=== PATIENT | female | born 1950 | race Caucasian/White ===

== ENCOUNTER 2017-03-26 13:12 | Inpatient (IN) | payer MEDICARE ==
[2017-03-26] MEDS ORDERED: SODIUM CHLORIDE 0.9% 1,000 ML IV STA (13:19)
--- NOTE | 2017-03-26 13:55 | ED ---
General Adult HPI - General Chief complaint: Weakness Stated complaint: weakness Time Seen by Provider: 03/26/17 13:14 Source: patient, EMS, RN notes reviewed Mode of arrival: EMS Limitations: no limitations - History of Present Illness Initial comments: Patient is a pleasant 66-year-old female presenting to the emergency department for generalized weakness. Patient took a bath last night but was too weak to get out of the bathtub. No isolated area of weakness. Patient tried to get out with assistance today however fell again. Patient denies any serious injury. No confusion. No neck or back pain. No chest pain. No abdominal pain. - Related Data Home Medications Medication Instructions Recorded Confirmed Benztropine Mesylate [Cogentin] 0.5 mg PO DAILY 03/26/17 03/26/17 Haloperidol [Haldol] 10 mg PO TID 03/26/17 03/26/17 Allergies Allergy/AdvReac Type Severity Reaction Status Date / Time No Known Allergies Allergy Verified 03/26/17 13:51 Review of Systems ROS Statement: Those systems with pertinent positive or pertinent negative responses have been documented in the HPI. ROS Other: All systems not noted in ROS Statement are negative. Constitutional: Denies: fever Eyes: Denies: eye pain ENT: Denies: ear pain Respiratory: Denies: dyspnea Cardiovascular: Denies: chest pain Endocrine: Denies: polydipsia Gastrointestinal: Denies: abdominal pain Genitourinary: Denies: dysuria Musculoskeletal: Denies: back pain Skin: Denies: rash Neurological: Reports: weakness Past Medical History History of Any Multi-Drug Resistant Organisms: None Reported Past Surgical History: No Surgical Hx Reported Additional Past Surgical History / Comment(s): as a child, D&C. Past Psychological History: Schizophrenia Smoking Status: Current every day smoker Past Alcohol Use History: None Reported Past Drug Use History: None Reported General Exam Limitations: no limitations General appearance: alert, in no apparent distress Head exam: Present: atraumatic Eye exam: Present: normal appearance, PERRL, EOMI ENT exam: Present: normal oropharynx Neck exam: Present: normal inspection Respiratory exam: Present: normal lung sounds bilaterally Cardiovascular Exam: Present: regular rate, normal rhythm Expanded Peripheral pulses: 2+: Radial (R), Radial (L), Dorsalis Pedis (R), Dorsalis Pedis (L) GI/Abdominal exam: Present: soft. Absent: tenderness Extremities exam: Present: normal inspection, full ROM. Absent: tenderness Neurological exam: Present: alert, oriented X3, CN II-XII intact. Absent: motor sensory deficit Expanded Patient oriented to: Present: person, place, time Speech: Present: fluid speech Sensory exam: Upper Extremity Light Touch: Normal, Lower Extremity Light Touch: Normal Motor strength exam: RUE: 5, LUE: 5, RLE: 5, LLE: 5 Eye Response: (4) open spontaneously Motor Response: (6) obeys commands Verbal Response: (5) oriented Psychiatric exam: Present: normal affect, normal mood Skin exam: Present: other (Ecchymosis left shoulder) Course Vital Signs 03/26/17 03/26/17 13:28 15:01 Temperature 97.9 F Pulse Rate 98 92 Respiratory 18 18 Rate Blood Pressure 117/72 125/87 O2 Sat by Pulse 94 L 97 Oximetry - Reevaluation(s) Reevaluation #1: 03/26/17 15:47 Patient reevaluated and updated. Patient case discussed in detail with Dr. Joseph, Who would like IV fluids provided. He agrees with heparin. Dr. Stuart has been paged for hospital admission. EKG Findings - EKG Comments: EKG Findings:: Normal sinus rhythm 94. TX 122. QRS 84. QT 402. QTC 502. Normal axis. Normal QRS. Lateral ST depression. Medical Decision Making - Lab Data Result diagrams: 03/26/17 13:32 03/26/17 13:32 Lab Results 03/26/17 03/26/17 03/26/17 Range/Units 13:32 13:32 13:32 WBC 20.2 H (3.8-10.6) k/uL RBC 4.78 (3.80-5.40) m/uL Hgb 15.9 (11.4-16.0) gm/dL Hct 45.4 (34.0-46.0) % MCV 94.9 (80.0-100.0) fL MCH 33.1 (25.0-35.0) pg MCHC 34.9 (31.0-37.0) g/dL RDW 13.0 (11.5-15.5) % Plt Count 296 (150-450) k/uL Neutrophils % 86 % Lymphocytes % 7 % Monocytes % 6 % Eosinophils % 0 % Basophils % 0 % Neutrophils # 17.4 H (1.3-7.7) k/uL Lymphocytes # 1.4 (1.0-4.8) k/uL Monocytes # 1.2 H (0-1.0) k/uL Eosinophils # 0.1 (0-0.7) k/uL Basophils # 0.0 (0-0.2) k/uL PT (9.0-12.0) sec INR (<1.1) APTT (22.0-30.0) sec Sodium 142 (137-145) mmol/L Potassium 3.8 (3.5-5.1) mmol/L Chloride 110 H (98-107) mmol/L Carbon Dioxide 19 L (22-30) mmol/L Anion Gap 13 mmol/L BUN 34 H (7-17) mg/dL Creatinine 1.00 (0.52-1.04) mg/dL Est GFR (MDRD) Af Amer >60 (>60 ml/min/1.73 sqM) Est GFR (MDRD) Non-Af 55 (>60 ml/min/1.73 sqM) Glucose 138 H (74-99) mg/dL Calcium 9.1 (8.4-10.2) mg/dL Magnesium 2.2 (1.6-2.3) mg/dL Total Bilirubin 0.7 (0.2-1.3) mg/dL AST 593 H (14-36) U/L ALT 120 H (9-52) U/L Alkaline Phosphatase 89 (38-126) U/L Total Creatine Kinase >71470 H (30-135) U/L CK-MB (CK-2) 180.0 H* (0.0-2.4) ng/mL CK-MB (CK-2) Rel Index Troponin I 8.280 H* (0.000-0.034) ng/mL Total Protein 7.0 (6.3-8.2) g/dL Albumin 3.8 (3.5-5.0) g/dL TSH 4.370 (0.465-4.680) mIU/L Free T4 0.87 (0.78-2.19) ng/dL Free T3 pg/mL 3.2 (2.8-5.3) pg/ml 03/26/17 Range/Units 13:32 WBC (3.8-10.6) k/uL RBC (3.80-5.40) m/uL Hgb (11.4-16.0) gm/dL Hct (34.0-46.0) % MCV (80.0-100.0) fL MCH (25.0-35.0) pg MCHC (31.0-37.0) g/dL RDW (11.5-15.5) % Plt Count (150-450) k/uL Neutrophils % % Lymphocytes % % Monocytes % % Eosinophils % % Basophils % % Neutrophils # (1.3-7.7) k/uL Lymphocytes # (1.0-4.8) k/uL Monocytes # (0-1.0) k/uL Eosinophils # (0-0.7) k/uL Basophils # (0-0.2) k/uL PT 11.2 (9.0-12.0) sec INR 1.1 (<1.1) APTT 21.0 L (22.0-30.0) sec Sodium (137-145) mmol/L Potassium (3.5-5.1) mmol/L Chloride (98-107) mmol/L Carbon Dioxide (22-30) mmol/L Anion Gap mmol/L BUN (7-17) mg/dL Creatinine (0.52-1.04) mg/dL Est GFR (MDRD) Af Amer (>60 ml/min/1.73 sqM) Est GFR (MDRD) Non-Af (>60 ml/min/1.73 sqM) Glucose (74-99) mg/dL Calcium (8.4-10.2) mg/dL Magnesium (1.6-2.3) mg/dL Total Bilirubin (0.2-1.3) mg/dL AST (14-36) U/L ALT (9-52) U/L Alkaline Phosphatase (38-126) U/L Total Creatine Kinase (30-135) U/L CK-MB (CK-2) (0.0-2.4) ng/mL CK-MB (CK-2) Rel Index Troponin I (0.000-0.034) ng/mL Total Protein (6.3-8.2) g/dL Albumin (3.5-5.0) g/dL TSH (0.465-4.680) mIU/L Free T4 (0.78-2.19) ng/dL Free T3 pg/mL (2.8-5.3) pg/ml Critical Care Time Critical Care Time: Yes Total Critical Care Time: 35 Disposition Clinical Impression: Weakness, NSTEMI (non-ST elevated myocardial infarction), Rhabdomyolysis Disposition: ADMITTED IP TO THIS [facility] Condition: Serious Referrals: None,Stated [Primary Care Provider] - 1-2 days Decision Time: 15:48
[2017-03-26 13:58] LABS: Basophils % (A) 0 %; CH 32.8; CHCM 34.7; Eosinophils # (A) 0.1 k/uL (0-0.7); Eosinophils % (A) 0 %; HCT 45.4 % (34.0-46.0); HDW 2.38; HGB 15.9 gm/dL (11.4-16.0); Luc # (Auto) 0.15; Luc % (Auto) 1; Lymphocytes # (A) 1.4 k/uL (1.0-4.8); Lymphocytes % (A) 7 %; MCH 33.1 pg (25.0-35.0); MCHC 34.9 g/dL (31.0-37.0); MCV 94.9 fL (80.0-100.0); Mean Platelet Volume 7.2; Monocytes # (A) 1.2 k/uL (0-1.0); Monocytes % (A) 6 %; Neutrophils # (A) 17.4 k/uL (1.3-7.7); Neutrophils % (A) 86 %; RBC 4.78 m/uL (3.80-5.40); WBC 20.2 k/uL (3.8-10.6); WBC (Perox) 20.15
[2017-03-26 14:09] LABS: INR 1.1 (<1.1); Prothrombin Time 11.2 sec (9.0-12.0)
[2017-03-26 14:10] LABS: ALT 120 U/L (9-52); AST 593 U/L (14-36); Alkaline Phosphatase 89 U/L (38-126); Anion Gap 13 mmol/L; Blood Urea Nitrogen 34 mg/dL (7-17); Calcium 9.1 mg/dL (8.4-10.2); Carbon Dioxide 19 mmol/L (22-30); Chloride 110 mmol/L (98-107); Glucose 138 mg/dL (74-99); Magnesium 2.2 mg/dL (1.6-2.3); Non-African American GFR(MDRD) 55 (>60 ml/min/1.73 sqM); Sodium 142 mmol/L (137-145); Total Bilirubin 0.7 mg/dL (0.2-1.3)
[2017-03-26 14:11] LABS: Potassium 3.8 mmol/L (3.5-5.1)
--- NOTE | 2017-03-26 14:32 | CT ---
EXAMINATION TYPE: CT brain wo con DATE OF EXAM: 03/26/2017 COMPARISON: NONE HISTORY: Pain and weakness CT DLP: [address] of the brain was performed. The ventricles, basal cisterns and sulci overlying the cerebral convexities demonstrate moderate enla rgement. There is no evidence for intracranial hemorrhage or sulcal effacement. There is decreased attenuation about the periventricular white matter and deep white matter of both c erebral hemispheres, compatible with chronic small vessel ischemia. Differential diagnosis does inclu de demyelination. No mass effects are seen.No midline shift. Osseous calvarium is intact. Mucosal thickening left maxillary sinus. If symptoms persist consider MRI. IMPRESSION: 1. Age related atrophic and chronic small vessel ischemic change without acute intracranial process s een at this time.
[2017-03-26] MEDS ORDERED: HEPARIN SODIUM,PORCINE 5,000 UNIT/ML 1 ML VIAL IV PRN (14:59)
[2017-03-26] MEDS ORDERED: HEPARIN SODIUM,PORCINE 5,000 UNIT/ML 1 ML VIAL IV ONE (14:59)
[2017-03-26 15:02] LABS: Creatine Kinase >32000 U/L (30-135)
--- NOTE | 2017-03-26 15:02 | XR ---
EXAMINATION TYPE: XR chest 2V DATE OF EXAM: 03/26/2017 COMPARISON: NONE TECHNIQUE: PA and lateral views submitted. HISTORY: Weakness FINDINGS: Diffuse osteopenia noted with arthropathy of the shoulders. There is no focal consolidation. Curvatur e the spine with degenerative changes noted. Atherosclerotic change aorta. IMPRESSION: 1. No acute process
--- NOTE | 2017-03-26 15:03 | XR ---
EXAMINATION TYPE: XR pelvis AP view DATE OF EXAM: 03/26/2017 COMPARISON: NONE HISTORY: Pain The osseous structures are intact and the joint spaces are preserved. No acute fracture is seen. Vi sualized bowel gas pattern is nonspecific. Vascular calcification seen with arthropathy of the hips. IMPRESSION: 1. No acute fracture.
--- NOTE | 2017-03-26 15:05 | XR ---
EXAMINATION TYPE: XR shoulder limited LT DATE OF EXAM: 03/26/2017 COMPARISON: NONE HISTORY: Pain TECHNIQUE: Two views are submitted. Frontal view is limited technically. FINDINGS: The osseous structures are intact. There is no acute fracture or dislocation. The AC joint is narro wed with mild hypertrophic changes. There is mild narrowing of the glenohumeral joint. Mild diffuse o steopenia. IMPRESSION: 1. No acute process.
[2017-03-26] MEDS: HEPARIN SODIUM,PORCINE/D5W PMX 25,000 UNIT in DEXTROSE/WATER 1 500ML.BAG IV SCH (15:30)
[2017-03-26] MEDS ORDERED: SODIUM CHLORIDE 0.9% 500 ML IV STA (15:48)
[2017-03-26] MEDS ORDERED: NITROGLYCERIN SL TABS 0.4 MG TAB SUBLINGUAL PRN (15:49)
[2017-03-26] MEDS ORDERED: ASPIRIN 81 MG CHEW PO STA (15:49)
[2017-03-26 15:53] LABS: Appearance,Urine Cloudy (Clear); Bilirubin,Urine Negative (Negative); Glucose,Urine (UA) Negative (Negative); Ketones,Urine Trace (Negative); Leukocyte Esterase,Urine Negative (Negative); Mucus,Urine Moderate /hpf; Nitrite,Urine Negative (Negative); PH, Urine 5.5 (5.0-8.0); Particle Count 19119; Protein,Urine 2+ (Negative); RBC,Urine 13 /hpf (0-5); Specific Gravity,Urine 1.026 (1.001-1.035); Squamous Epithelial Cell,Urine 2 /hpf (0-4); UA Billing (MACRO vs. MICRO) MICRO; Urobilinogen,Urine <2.0 mg/dL (<2.0)
[2017-03-26 20:43] LABS: Creatine Kinase >32000 U/L (30-135)
[2017-03-26] MEDS: HALOPERIDOL 5 MG TAB PO SCH (21:59)
[2017-03-26] MEDS ORDERED: LEVOFLOXACIN 500MG-D5W PMX 500 MG in DEXTROSE/WATER 1 100ML.BAG IVPB SCH (22:00)
[2017-03-27] MEDS ORDERED: LORazepam 1 MG TAB PO PRN (00:17)
[2017-03-27] MEDS: NITROGLYCERIN OINT 1 INCH/GM PACKET TOPICAL SCH ×5 (00:19→17:05)
[2017-03-27] MEDS: SODIUM CHLORIDE 0.9% 1,000 ML IV SCH ×3 (00:19→20:55)
[2017-03-27 02:49] LABS: Creatine Kinase >32000 U/L (30-135)
--- NOTE | 2017-03-27 06:07 | HP ---
CHIEF COMPLAINT: Weakness. HISTORY OF PRESENT ILLNESS: This 66-year-old woman with a past medical history of history of DJD, history of schizophrenia, history of smoking, living in [facility] apparently has been followed with Dr. Leon who is a psychiatrist. The patient apparently was complaining of weakness and patient was unable to get out of the bathtub. The patient had a fall also. The patient denied any ( ) pain, but however a friend came in and apparently took to the patient to [facility] and admitted for further evaluation and treatment. In the ER, the patient was showing evidence of rhabdomyolysis, indicating WBC 20.2 and AST, ALT were elevated and as well as creatine kinase elevated 32,000. The patient admitted for further evaluation and treatment. There is no history of fever, rigors. No history of headache, loss of consciousness or seizures. The creatinine was 1. PAST MEDICAL HISTORY: History of schizophrenia and history of DJD. History of smoking. Medications prior to admission include: 1. Haldol 10 mg p.o. t.i.d. 2. Cogentin 0.5 mg daily. Allergies are none. FAMILY HISTORY: History of CHF in the family. SOCIAL HISTORY: History of current smoking, about at least a pack of cigarettes per day. Occasional alcohol intake. REVIEW OF SYSTEM: ENT: No diminished hearing and vision. CARDIOVASCULAR: No angina or palpitations. RESPIRATORY: No cough or hemoptysis. GI: As mentioned earlier. : No dysuria NERVOUS SYSTEM: No numbness or weakness. ALLERGY/IMMUNOLOGY: No history of asthma or hayfever. MUSCULOSKELETAL: As mentioned earlier. HEMATOLOGY/ONCOLOGY: No history of anemia. ENDOCRINE: No history of diabetes or hypothyroidism. CONSTITUTIONAL: As mentioned earlier. DERMATOLOGY: Negative. RHEUMATOLOGY: Negative. PSYCHIATRY: As mentioned earlier. PHYSICAL EXAM: The patient is alert and oriented x2. Pulse is 93, blood pressure is 138/81, respirations 17, temperature 97.1, pulse ox 95% on room air. HEENT: Conjunctivae normal. Oral mucosa moist. NECK: No jugular venous distention. No thyroid enlargement or carotid bruit. No lymph node enlargement. CARDIOVASCULAR SYSTEM: S1 and S2, normal. No S3, no S4. RESPIRATORY: Diminished at the bases. A few scattered rhonchi. Bilateral scattered crackles also present. ABDOMEN: Soft. Nontender. No mass palpable. LEGS: No edema, no swelling. No tenderness. No myositis. NERVOUS SYSTEM: Moves all 4 limbs. No focal motor or sensory deficits. SKIN: No ulcers, rashes, bleeding. LYMPHATICS: No lymphadenopathy of the neck, axillae or groin. JOINTS: No active deforming arthropathy. Labs are at this time shows WBC 20.2, hemoglobin 15.9 and sodium 142, potassium 3.8 and AST is 593 and ALT 120. Creatine kinase 32,000. UA noted. ASSESSMENT: 1. Generalized weakness and acute rhabdomyolysis. 2. Increased AST, ALT, possible acute hepatitis. 3. Increased WBC, possible reaction. 4. Troponin elevated up to 8.280 5. Generalized weakness and gait dysfunction. 6. Degenerative joint disease. 7. Schizophrenia. 8. History of nicotine dependence. RECOMMENDATIONS AND DISCUSSION: In this 66-year-old woman who presented with multiple complex medical issues, will monitor the patient closely. Continue the current medications. Continue symptomatic treatment. Continue with IV fluids. Otherwise, repeat CK. The chest x-ray was done in the ER which I reviewed personally and showed no acute changes. CAT scan of the brain was also done, which showed age-related changes. Should x-rays and pelvic x-rays also have been done. The EKG showed no evidence of acute abnormality. The patient ( ) to have a acute [id number] elevation myocardial infarction because the patient did not have any chest pains per se, could be part of the rhabdomyolysis, however, we will obtain cardiology consultation and continue to monitor. A 2-D echo will be ordered. Other than that, PT, OT also will be ordered and Social Work will be consulted for home situation and continue to monitor. Daily creatine kinase also will be checked. Prognosis guarded. Further recommendation to follow. MTDD
[2017-03-27 06:34] LABS: Basophils % (A) 0 %; CH 32.8; CHCM 33.8; Eosinophils % (A) 0 %; HCT 44.6 % (34.0-46.0); HDW 2.34; HGB 15.2 gm/dL (11.4-16.0); Luc % (Auto) 1; Lymphocytes # (A) 2.3 k/uL (1.0-4.8); Lymphocytes % (A) 13 %; MCH 33.1 pg (25.0-35.0); MCV 97.3 fL (80.0-100.0); Mean Platelet Volume 7.4; Monocytes # (A) 0.6 k/uL (0-1.0); Monocytes % (A) 4 %; Neutrophils # (A) 14.4 k/uL (1.3-7.7); Neutrophils % (A) 82 %; RBC 4.58 m/uL (3.80-5.40); RDW 13.4 % (11.5-15.5); WBC 17.4 k/uL (3.8-10.6); WBC (Perox) 16.76
[2017-03-27 06:56] LABS: ALT 142 U/L (9-52); AST 623 U/L (14-36); Alkaline Phosphatase 86 U/L (38-126); Anion Gap 8 mmol/L; Blood Urea Nitrogen 27 mg/dL (7-17); Calcium 8.5 mg/dL (8.4-10.2); Carbon Dioxide 21 mmol/L (22-30); Chloride 110 mmol/L (98-107); Cholesterol 172 mg/dL (<200); Glucose 108 mg/dL (74-99); HDL Cholesterol 45 mg/dL (40-60); Non-African American GFR(MDRD) >60 (>60 ml/min/1.73 sqM); Potassium 3.9 mmol/L (3.5-5.1); Sodium 139 mmol/L (137-145); Total Bilirubin 0.6 mg/dL (0.2-1.3); Total Protein 5.7 g/dL (6.3-8.2); Triglycerides 145 mg/dL (<150)
[2017-03-27 07:29] LABS: Creatine Kinase >32000 U/L (30-135)
[2017-03-27 08:56] VITALS: BMI 31.4
--- NOTE | 2017-03-27 08:59 | P.CRDCN ---
History of Present Illness Consult date: 03/27/17 Requesting physician: Veto Stuart Reason for Consult (text): Abnormal troponins Chief complaint: Severe weakness and muscle pain History of present illness: This is a 66-year-old with history of schizophrenia, nicotine dependence, who was brought to the hospital by a friend because the patient was unable to get out of the bathtub. She was extremely weak. According to the patient she has had some frequent falls recently and has had extensive discomfort in the muscles in her legs and arms, she also has been having significant chest pain off and on. She also states that she has more shortness of breath than usual. Blood pressure on arrival to the emergency room 117/70 with a heart rate in the 90s. Afebrile. The pressure this morning 136/78 with a heart rate in the 80s, 93% on room air. White blood cell count on arrival 20.2, 17.4 this morning, hemoglobin 15.2, potassium 3.9, BUN 27, creatinine 0.9. CK greater than 32,000, MB 147, troponin 8.2, 7.1, 5.5. TSH 4.3, free T4 0.87. Cholesterol 172, triglycerides 145, LDL 98, HDL 45. Pelvis and shoulder x-ray do not reveal any acute fracture. Brain CT reveals age-related atrophic and chronic small vessel ischemic change without acute intracranial process. Chest x-ray does not reveal any acute process. Initial EKG shows a normal sinus rhythm with mild ST depression in the lateral leads subsequent EKG shows normal sinus rhythm with mild lateral ST depression. At the time of my examination this morning, patient is comfortable, on palpation of her lower extremity she does complain of pain in the muscles. Breathing has been stable. Past Medical History Past Medical History: Osteoarthritis (OA) Additional Past Medical History / Comment(s): SCHIZOPHRENIA History of Any Multi-Drug Resistant Organisms: None Reported Past Surgical History: No Surgical Hx Reported, Tonsillectomy Additional Past Surgical History / Comment(s): HAD AT AGE 17 AND AGE 19 , D&C., CATARACTS Past Anesthesia/Blood Transfusion Reactions: No Reported Reaction Smoking Status: Current every day smoker - Past Family History Mother Family Medical History: Congestive Heart Failure (CHF) Additional Family Medical History / Comment(s): LEG SWELLING Father Family Medical History: Congestive Heart Failure (CHF) Medications and Allergies Home Medications Medication Instructions Recorded Confirmed Type Benztropine Mesylate [Cogentin] 0.5 mg PO DAILY 03/26/17 03/26/17 History Haloperidol [Haldol] 10 mg PO TID 03/26/17 03/26/17 History Allergies Allergy/AdvReac Type Severity Reaction Status Date / Time No Known Allergies Allergy Verified 03/26/17 13:51 Physical Exam Vitals: Vital Signs Temp Pulse Pulse Resp BP BP Pulse Ox 03/27/17 03:03 96.9 F L 84 18 136/79 93 L 03/26/17 23:34 97.1 F L 93 17 138/81 95 03/26/17 20:00 98.6 F 95 18 125/76 94 L 03/26/17 18:54 69 16 121/73 95 03/26/17 17:04 97.1 F L 03/26/17 16:50 94 18 124/81 100 03/26/17 15:01 92 18 125/87 97 03/26/17 13:28 97.9 F 98 18 117/72 94 L Intake and Output 03/26/17 03/27/17 03/27/17 22:59 06:59 14:59 Intake Total 240 1248 Output Total 250 225 Balance -10 1023 Intake: Intake, IV Titration 1248 Amount Heparin Sodium,Porcine/ 148 D5w Pmx 25,000 unit In Dextrose/Water 1 500ml. bag @ 12 UNITS/KG/HR 18.5 mls/hr IV .Q24H IRINA Rx#: [id number] Levofloxacin 500Mg-D5w 100 Pmx 500 mg In Dextrose/ Water 1 100ml.bag @ 100 mls/hr IVPB Q24H IRINA Rx#: [id number] Sodium Chloride 0.9% 1, 1000 000 ml @ 125 mls/hr IV . Q8H IRINA Rx#:[id number] Oral 240 Output: Urine 250 225 Straight 100 Other: Voiding Method Bedside Commode Bedside Commode # Voids 1 Weight 77.8 kg PHYSICAL EXAMINATION: HEENT: Head is atraumatic, normocephalic. Pupils equal, round. Neck is supple. There is no elevated jugular venous pressure. HEART EXAMINATION: Heart S1, S2 normal. No murmur or gallop heard. CHEST EXAMINATION: Lungs are clear to auscultation and precussion. No chest wall tenderness is noted on palpation or with deep breathing. ABDOMEN: Soft, nontender. Bowel sounds are heard. No organomegaly noted. EXTREMITIES: 2+ peripheral pulses with no evidence of peripheral edema and no calf tenderness noted]. Positive pain on palpation of the muscles in arms and legs. NEUROLOGIC [patient is awake, alert and oriented -3.] . Results 03/27/17 05:53 03/27/17 05:53 Cardiac Enzymes 03/26/17 03/26/17 03/26/17 Range/Units 13:32 13:32 19:08 AST 593 H (14-36) U/L CK-MB (CK-2) 180.0 H* 147.0 H* (0.0-2.4) ng/mL Troponin I 8.280 H* 7.110 H* (0.000-0.034) ng/mL 03/27/17 03/27/17 Range/Units 00:53 05:53 AST 623 H (14-36) U/L CK-MB (CK-2) 115.0 H* (0.0-2.4) ng/mL Troponin I 5.570 H* (0.000-0.034) ng/mL Coagulation 03/26/17 03/26/17 03/27/17 Range/Units 13:32 21:16 05:53 PT 11.2 (9.0-12.0) sec APTT 21.0 L 52.9 H 40.5 H (22.0-30.0) sec Lipids 03/27/17 Range/Units 05:53 Triglycerides 145 (<150) mg/dL Cholesterol 172 (<200) mg/dL HDL Cholesterol 45 (40-60) mg/dL CBC 03/26/17 03/27/17 Range/Units 13:32 05:53 WBC 20.2 H 17.4 H (3.8-10.6) k/uL RBC 4.78 4.58 (3.80-5.40) m/uL Hgb 15.9 15.2 (11.4-16.0) gm/dL Hct 45.4 44.6 (34.0-46.0) % Plt Count 296 264 (150-450) k/uL Comprehensive Metabolic Panel 03/26/17 03/27/17 Range/Units 13:32 05:53 Sodium 142 139 (137-145) mmol/L Potassium 3.8 3.9 (3.5-5.1) mmol/L Chloride 110 H 110 H (98-107) mmol/L Carbon Dioxide 19 L 21 L (22-30) mmol/L BUN 34 H 27 H (7-17) mg/dL Creatinine 1.00 0.90 (0.52-1.04) mg/dL Glucose 138 H 108 H (74-99) mg/dL Calcium 9.1 8.5 (8.4-10.2) mg/dL AST 593 H 623 H (14-36) U/L ALT 120 H 142 H (9-52) U/L Alkaline Phosphatase 89 86 (38-126) U/L Total Protein 7.0 5.7 L (6.3-8.2) g/dL Albumin 3.8 3.0 L (3.5-5.0) g/dL Current Medications Generic Name Dose Route Start Last Admin Trade Name Freq PRN Reason Stop Dose Admin Aspirin 325 mg 03/27/17 09:00 Aspirin PO DAILY IRINA Benztropine Mesylate 0.5 mg 03/27/17 09:00 Cogentin PO DAILY IRINA Haloperidol 10 mg 03/26/17 22:00 03/26/17 21:59 Haldol PO 10 mg TID IRINA Administration Heparin Sodium (Porcine) 0 unit 03/26/17 14:59 Heparin IV PER PROTOCOL PRN Low PTT Protocol Heparin Sodium/Dextrose 25,000 500 mls @ 18.5 mls/hr 03/26/17 15:00 03/26/17 15:30 unit/ IV Solution IV 12 units/kg/hr .Q24H IRINA 18.5 mls/hr Protocol Administration 12 UNITS/KG/HR Sodium Chloride 1,000 mls @ 125 mls/hr 03/26/17 16:00 03/27/17 03:10 Saline 0.9% IV Not Given .Q8H IRINA Levofloxacin 500 mg/ IV 100 mls @ 100 mls/hr 03/26/17 22:00 03/26/17 21:59 Solution IVPB 100 mls/hr Q24H IRINA Administration Lorazepam 0.5 mg 03/27/17 00:17 Ativan PO Q8HR PRN Anxiety Nicotine 1 patch 03/27/17 09:00 Habitrol 14mg/24hr Patch TRANSDERM DAILY [facility] Nitroglycerin 1 inch 03/26/17 18:00 03/27/17 06:14 Nitro-Bid Oint TOPICAL Not Given Q6HR [facility] Nitroglycerin 0.4 mg 03/26/17 15:49 Nitrostat SUBLINGUAL Q5M PRN Chest Pain Intake and Output 03/26/17 03/27/17 03/27/17 22:59 06:59 14:59 Intake Total 240 1248 Output Total 250 225 Balance -10 1023 Intake: Intake, IV Titration 1248 Amount Heparin Sodium,Porcine/ 148 D5w Pmx 25,000 unit In Dextrose/Water 1 500ml. bag @ 12 UNITS/KG/HR 18.5 mls/hr IV .Q24H IRINA Rx#: [id number] Levofloxacin 500Mg-D5w 100 Pmx 500 mg In Dextrose/ Water 1 100ml.bag @ 100 mls/hr IVPB Q24H IRINA Rx#: [id number] Sodium Chloride 0.9% 1, 1000 000 ml @ 125 mls/hr IV . Q8H IRINA Rx#:[id number] Oral 240 Output: Urine 250 225 Straight 100 Other: Voiding Method Bedside Commode Bedside Commode # Voids 1 Weight 77.8 kg 03/27/17 05:53 03/27/17 05:53 EKG Interpretations (text) EKG shows normal sinus rhythm with lateral ST depression. Assessment and Plan Plan: Assessment and plan #1 symptoms of generalized weakness, muscle aching and falls, primary muscle disorder needs to be considered. Possible myositis. #2 abnormal liver enzymes, could be secondary to primary muscle disorder. #3 increase white blood cell count, no evidence of fever #4 troponin elevation, could be secondary to primary muscle disorder, possible myocarditis. Not suggestive of acute coronary syndrome. #5 schizophrenia #6 nicotine dependence Plan We will obtain an echocardiogram with Doppler study. Obtain sed rate and CRP. Continue hydration with IV fluids at 1 25 mL per hour. Recommend rheumatology consultation. Further recommendations to follow. DNP note has been reviewed, I agree with a documented findings and plan of care. Patient was seen and examined.
[2017-03-27] MEDS: HALOPERIDOL 5 MG TAB PO SCH ×3 (09:13→20:54)
[2017-03-27] MEDS: BENZTROPINE MESYLATE 0.5 MG TAB PO SCH (09:13)
[2017-03-27] MEDS: NICOTINE 14MG/24HR PATCH TRANSDERM SCH ×2 (09:13→09:14)
[2017-03-27] MEDS: ASPIRIN 325 MG TAB PO SCH (09:13)
--- NOTE | 2017-03-27 09:50 | ECHOF ---
Referral Reason:nstemi MEASUREMENTS -------- HEIGHT: 157.5 cm WEIGHT: 77.1 kg BP: 119/74 RVIDd: 2.3 cm (< 3.3) IVSd: 0.9 cm (0.6 - 1.1) LVIDd: 4.4 cm (3.9 - 5.3) LVPWd: 1.1 cm (0.6 - 1.1) IVSs: 1.5 cm LVIDs: 3.7 cm LVPWs: 1.4 cm LAESV Index (A-L): 26.44 ml/m Ao Diam: 2.6 cm (2.0 - 3.7) AV Cusp: 1.3 cm (1.5 - 2.6) LA Diam: 3.0 cm (2.7 - 3.8) MV EXCURSION: 15.293 mm (> 18.000) MV EF SLOPE: 107 mm/s (70 - 150) EPSS: 1.2 cm MV E Kris: 0.39 m/s MV DecT: 244 ms MV A Kris: 0.73 m/s MV E/A Ratio: 0.53 RAP: 5.00 mmHg RVSP: 22.08 mmHg FINDINGS -------- Sinus rhythm. This was a technically adequate study. Overall left ventricular systolic function is low-normal with, an EF between 50 - 55 %. The right ventricle is normal in size and function. Normal LA size by volume 22+/-6 ml/m2. The right atrium is normal in size. Aortic valve is trileaflet and is mildly thickened. There is no evidence of aortic regurgitation. There is no evidence of aortic stenosis. The mitral valve leaflets are mildly thickened. Mild mitral annular calcification present. Mild mitral regurgitation is present. Mild tricuspid regurgitation present. There is no evidence of pulmonary hypertension. The right ventricular systolic pressure, as measured by Doppler, is 22.08mmHg. The pulmonic valve was not well visualized. The aortic root size is normal. Normal inferior vena cava with normal inspiratory collapse consistent with estimated right atrial pressure of 5 mmHg. The pericardium is normal. There is no pericardial effusion. CONCLUSIONS -------- 1. Sinus rhythm. 2. There is no evidence of pulmonary hypertension. 3. The right ventricular systolic pressure, as measured by Doppler, is 22.08mmHg. 4. The pulmonic valve was not well visualized. 5. The aortic root size is normal. 6. There is no pericardial effusion. 7. This was a technically adequate study. 8. Overall left ventricular systolic function is low-normal with, an EF between 50 - 55 %. 9. Normal LA size by volume 22+/-6 ml/m2. 10. Aortic valve is trileaflet and is mildly thickened. 11. The mitral valve leaflets are mildly thickened. 12. Mild mitral annular calcification present. 13. Mild mitral regurgitation is present. 14. Mild tricuspid regurgitation present. VETERINARY SURGERY TECHNOLOGIST: Napoleon Blank RDCS
--- NOTE | 2017-03-27 17:09 | P.CN ---
Psychiatric Consult - . Consult date: 03/27/17 Consult:: 03/27/17 16:54 DATE OF SERVICE: 03/27/2017 IDENTIFYING DATA: This patient is a 66-year-old single female admitted to the medical floor for weakness. . HISTORY OF PRESENT ILLNESS: Patient was brought to the hospital by a friend because the patient was unable to get out of the bathtub. Patient was weak and has had some falls recently. Patient also has a diagnosis of schizophrenia but does not spontaneously report any symptoms, no symptoms were noted as a problem for this consult and RN did not know why consult was placed. Patient was lying in bed asleep, she awoke easily. She reported that she was fine, asked her if she had any symptoms anxiety or depression she denied. She did report that she has auditory and visual hallucinations revolving around the devil, and that this is been going on for 40 years. States she does not think she needs any change in her medication. She gave the name of her doctor but I could not understand it.. PAST PSYCHIATRIC HISTORY: Unknown. PAST MEDICAL HISTORY: per record . ALLERGIES: No known drug allergies. CHEMICAL DEPENDENCY HISTORY: Unknown. MENTAL STATUS EXAM: [Patient alert and oriented to person, place, 03/31/2017. Good eye contact, well groomed groomed in hospital attire. Speech normal volume, rate and production. Coherent, logical and goal directed thought process. No YASIR, no FOI. [No TB/TW/ TI] Reported both auditory and visual hallucinations of devil/demons. Denied paranoid ideation, delusions or IOR. Mood [blunted], affect flat, congruent with mood. Denies suicidal ideation, denies homicidal ideation. Insight [partial]; Judgment grossly intact for treatment purposes ]. IMPRESSIONS: 66-year-old female with a 40 year history of schizophrenia admitted for weakness, unable to get out of bathtub. Review of record and discussion with RN no psychiatric symptoms, no behavioral problems, no danger to self or others. Schizophrenia, chronic, stable PLAN: Continue psychiatric medications as prescribed from her outpatient provider. Will sign off, please reconsult if needed 03/27/17 17:04 03/27/17 17:05
[2017-03-27 17:59] LABS: ALT 146 U/L (9-52); AST 532 U/L (14-36); Uric Acid 5.5 mg/dL (3.7-7.4)
[2017-03-27 18:04] LABS: Rheumatoid Factor, Qnt <9 IU/mL (<12)
[2017-03-27] MEDS: LEVOFLOXACIN 500 MG TAB PO SCH (20:54)
[2017-03-28] MEDS: SODIUM CHLORIDE 0.9% 1,000 ML IV SCH ×4 (00:12→16:01)
[2017-03-28] MEDS: NITROGLYCERIN OINT 1 INCH/GM PACKET TOPICAL SCH ×4 (00:13→17:33)
[2017-03-28] MEDS: HEPARIN SODIUM,PORCINE/D5W PMX 25,000 UNIT in DEXTROSE/WATER 1 500ML.BAG IV SCH (02:52)
[2017-03-28 05:48] LABS: Aldolase 89.8 U/L (1.2-7.6)
[2017-03-28 06:03] LABS: Basophils % (A) 0 %; CH 32.4; CHCM 33.1; Eosinophils # (A) 0.1 k/uL (0-0.7); Eosinophils % (A) 1 %; HCT 38.1 % (34.0-46.0); HDW 2.45; HGB 12.8 gm/dL (11.4-16.0); Luc # (Auto) 0.13; Luc % (Auto) 2; Lymphocytes # (A) 1.7 k/uL (1.0-4.8); Lymphocytes % (A) 22 %; MCH 33.1 pg (25.0-35.0); MCHC 33.7 g/dL (31.0-37.0); MCV 98.2 fL (80.0-100.0); Monocytes # (A) 0.4 k/uL (0-1.0); Monocytes % (A) 5 %; Neutrophils # (A) 5.4 k/uL (1.3-7.7); Neutrophils % (A) 70 %; RBC 3.88 m/uL (3.80-5.40); RDW 13.2 % (11.5-15.5); WBC 7.8 k/uL (3.8-10.6); WBC (Perox) 8.05
[2017-03-28 06:25] LABS: ALT 131 U/L (9-52); AST 446 U/L (14-36); Alkaline Phosphatase 59 U/L (38-126); Anion Gap 4 mmol/L; Blood Urea Nitrogen 21 mg/dL (7-17); Calcium 7.9 mg/dL (8.4-10.2); Carbon Dioxide 23 mmol/L (22-30); Chloride 112 mmol/L (98-107); Glucose 98 mg/dL (74-99); Non-African American GFR(MDRD) >60 (>60 ml/min/1.73 sqM); Potassium 3.8 mmol/L (3.5-5.1); Sodium 139 mmol/L (137-145); Total Bilirubin 0.5 mg/dL (0.2-1.3); Total Protein 5.1 g/dL (6.3-8.2)
[2017-03-28 07:29] LABS: Creatine Kinase 25449 U/L (30-135)
[2017-03-28] MEDS: HALOPERIDOL 5 MG TAB PO SCH ×3 (08:02→21:50)
[2017-03-28] MEDS: NICOTINE 14MG/24HR PATCH TRANSDERM SCH ×2 (08:02→08:10)
[2017-03-28] MEDS: BENZTROPINE MESYLATE 0.5 MG TAB PO SCH (08:02)
[2017-03-28] MEDS: ASPIRIN 325 MG TAB PO SCH (08:02)
[2017-03-28 11:16] LABS: HLA B27 NEGATIVE; HLA B27 Comment SEEBELOW
--- NOTE | 2017-03-28 14:03 | PN ---
DATE OF SERVICE: 03/27/2017 This 66-year-old woman was admitted with tiredness and weakness. Patient unable to get up from the bed for quite some time. The patient also had elevated troponin which is thought to be secondary to rhabdomyolysis. The chummer is following the patient closely. Myocardial infarction thought to be unlikely. A 2-D echo with Doppler was done today which showed ejection fraction about 50% to 55% which is low normal and mild abnormalities. There is no history of fever, rigors or chills. PAST MEDICAL HISTORY: Reviewed. REVIEW OF SYSTEMS: CARDIOVASCULAR SYSTEM: As mentioned earlier. RESPIRATORY: As mentioned earlier. GI: No nausea or vomiting. NEUROLOGIC: No numbness or weakness. Current medications are reviewed and include aspirin 325 mg daily, Cogentin 0.5 daily, Haldol 10 mg t.i.d., heparin subQ b.i.d., Levaquin 500 mg q.h.s., Ativan 0.5 mg q.8, Habitrol 14 mg patch, Nitrostat, Nitro-Bid ointment. PHYSICAL EXAMINATION: The patient is alert and oriented x3. Pulse is 88, blood pressure 136/60, respirations 16, temperature is 98.3, pulse ox 94% on room air. HEENT: Conjunctivae normal. NECK: No jugular venous distension. CARDIOVASCULAR SYSTEM: S1, S2, muffled. RESPIRATORY: Breath sounds diminished at the bases. A few scattered rhonchi, no crackles. ABDOMEN: Soft, nontender. No mass palpable. LEGS: No edema, no swelling. NERVOUS SYSTEM: Diffusely weak. LABS: WBC is 17.4, CK is more than 32,000, AST is 623 and ALT is 142. ASSESSMENT: 1. Generalized weakness and acute rhabdomyolysis. 2. Increased AST, ALT, possibly acute hepatitis. 3. Increased WBC, possible reactive. 4. Troponin elevated up to 8.280, possible from rhabdomyolysis. 5. Generalized weakness and gait dysfunction. 6. Degenerative joint disease. 7. History of nicotine dependence. RECOMMENDATION: Recommend to continue with the current medication and symptomatic treatment. Otherwise, monitor the patient closely and continue with IV fluids. PT, OT evaluation. Possible ECF rehab. Cardiology input appreciated. Further recommendation to follow. MTDD
--- NOTE | 2017-03-28 14:29 | P.CONS ---
History of Present Illness - Reason for Consult Consult date: 03/27/17 R/O myositis - Chief Complaint Generalized muscle weakness - History of Present Illness Pt. is a 66 female with a past medical history significant for schizophrenia and nicotine dependence who presented to [facility] emergency department today due to generalized muscle weakness. Patient states that last night and her residential home she was taking a bath and was unable to lift herself out of the bathtub. Patient mentions that she does generally feel weak and she has fallen a couple of times more recently. Patient describes her weakness is generalized and she also experiences generalized pain as well. She does also describe a tightness in her chest. Cardiac workup was done and elevated troponins were found. Patient was also found to have elevated white blood cell count 20.2 in addition to significantly elevated liver enzymes and CK greater than 32,000. Rheumatology was consulted to rule out possible myositis or autoimmune causes for patient's symptoms. Patient is currently on Haldol and Cogentin for her schizophrenia. In speaking with the patient today she was lying in bed comfortably and seemed extremely fatigued and was constantly yawning. No rashes or obvious synovitis or swelling was noted. Patient was unable to lift her lower extremities while keeping her knees completely extended and she also had quite a difficult time raising her arms above her head. Review of Systems All systems: negative Constitutional: Reports fatigue, Reports lethargy, Reports malaise, Reports weakness, Denies chills, Denies fever Eyes: denies blurred vision, denies pain Ears, nose, mouth and throat: Denies headache, Denies sore throat Cardiovascular: Reports chest pain (chest tightness), Denies shortness of breath Respiratory: Denies cough Gastrointestinal: Denies abdominal pain, Denies diarrhea, Denies nausea, Denies vomiting Genitourinary: Denies dysuria, Denies hematuria Musculoskeletal: Reports low back pain, Reports muscle weakness, Reports myalgias, Reports neck pain Integumentary: Denies pruritus, Denies rash Neurological: Denies numbness, Denies weakness Psychiatric: Denies anxiety, Denies depression Endocrine: Reports fatigue, Denies weight change Past Medical History Past Medical History: Osteoarthritis (OA) Additional Past Medical History / Comment(s): SCHIZOPHRENIA History of Any Multi-Drug Resistant Organisms: None Reported Past Surgical History: No Surgical Hx Reported, Tonsillectomy Additional Past Surgical History / Comment(s): HAD AT AGE 17 AND AGE 19 , D&C., CATARACTS Past Anesthesia/Blood Transfusion Reactions: No Reported Reaction Smoking Status: Current every day smoker - Past Family History Mother Family Medical History: Congestive Heart Failure (CHF) Additional Family Medical History / Comment(s): LEG SWELLING Father Family Medical History: Congestive Heart Failure (CHF) Medications and Allergies Home Medications Medication Instructions Recorded Confirmed Type Benztropine Mesylate [Cogentin] 0.5 mg PO DAILY 03/26/17 03/26/17 History Haloperidol [Haldol] 10 mg PO TID 03/26/17 03/26/17 History Allergies Allergy/AdvReac Type Severity Reaction Status Date / Time No Known Allergies Allergy Verified 03/26/17 13:51 Physical Exam Vitals: Vital Signs Temp Pulse Resp BP Pulse Ox 03/27/17 16:00 96 16 03/27/17 12:00 96 16 130/76 93 L 03/27/17 09:35 93 L 03/27/17 08:00 98.3 F 88 16 136/63 94 L 03/27/17 03:03 96.9 F L 84 18 136/79 93 L 03/26/17 23:34 97.1 F L 93 17 138/81 95 03/26/17 20:00 98.6 F 95 18 125/76 94 L 03/26/17 18:54 69 16 121/73 95 Intake and Output 03/27/17 03/27/17 03/27/17 06:59 14:59 22:59 Intake Total 1248 1660 469.9 Output Total 225 Balance 1023 1660 469.9 Intake: Intake, IV Titration 1248 940 469.9 Amount Heparin Sodium,Porcine/ 148 140 469.9 D5w Pmx 25,000 unit In Dextrose/Water 1 500ml. bag @ 12 UNITS/KG/HR 18.5 mls/hr IV .Q24H [facility] Rx#: [id number] Levofloxacin 500Mg-D5w 100 Pmx 500 mg In Dextrose/ Water 1 100ml.bag @ 100 mls/hr IVPB Q24H [facility] Rx#: [id number] Sodium Chloride 0.9% 1, 800 000 ml @ 100 mls/hr IV . Q10H [facility] Rx#:[id number] Sodium Chloride 0.9% 1, 1000 000 ml @ 125 mls/hr IV . Q8H [facility] Rx#:[id number] Oral 720 Output: Urine 225 Other: Voiding Method Bedside Commode Bedside Commode Bedside Commode # Voids 1 Weight 77.8 kg 77.8 kg Patient Weight 03/28/17 06:59 Weight 77.8 kg - Constitutional General appearance: no acute distress (pt. constantly yawning and appeared quite fatigued/tired) - EENT Eyes: EOMI - Neck Neck: no lymphadenopathy - Respiratory Respiratory: bilateral: CTA - Cardiovascular Rhythm: regular Heart sounds: normal: S1, S2 - Gastrointestinal General gastrointestinal: no organomegaly, soft, no tenderness - Integumentary Integumentary: normal, no rash - Neurologic Neurologic: CNII-XII intact - Musculoskeletal Musculoskeletal: generalized weakness (pt. unable to lift legs with knees extended or raise arms above head) - Psychiatric Psychiatric: A&O x's 3 Results CBC & Chem 7: 03/27/17 05:53 03/27/17 05:53 Labs: Abnormal Lab Results - Last 24 Hours (Table) 03/26/17 03/26/17 03/27/17 Range/Units 19:08 21:16 00:53 WBC (3.8-10.6) k/uL Neutrophils # (1.3-7.7) k/uL ESR (0-20) mm/hr APTT 52.9 H (22.0-30.0) sec Chloride (98-107) mmol/L Carbon Dioxide (22-30) mmol/L BUN (7-17) mg/dL Glucose (74-99) mg/dL AST (14-36) U/L ALT (9-52) U/L Creatine Kinase (30-135) U/L Total Creatine Kinase >43134 H >39694 H (30-135) U/L CK-MB (CK-2) 147.0 H* 115.0 H* (0.0-2.4) ng/mL Troponin I 7.110 H* 5.570 H* (0.000-0.034) ng/mL C-Reactive Protein (<10.0) mg/L Total Protein (6.3-8.2) g/dL Albumin (3.5-5.0) g/dL 03/27/17 03/27/1703/27/17 Range/Units 05:33 05:33 05:53 WBC 17.4 H (3.8-10.6) k/uL Neutrophils # 14.4 H (1.3-7.7) k/uL ESR 32 H (0-20) mm/hr APTT (22.0-30.0) sec Chloride (98-107) mmol/L Carbon Dioxide (22-30) mmol/L BUN (7-17) mg/dL Glucose (74-99) mg/dL AST (14-36) U/L ALT (9-52) U/L Creatine Kinase (30-135) U/L Total Creatine Kinase (30-135) U/L CK-MB (CK-2) (0.0-2.4) ng/mL Troponin I (0.000-0.034) ng/mL C-Reactive Protein 172.1 H (<10.0) mg/L Total Protein (6.3-8.2) g/dL Albumin (3.5-5.0) g/dL 03/27/17 03/27/17 03/27/17 Range/Units 05:53 05:53 16:10 WBC (3.8-10.6) k/uL Neutrophils # (1.3-7.7) k/uL ESR (0-20) mm/hr APTT 40.5 H 41.0 H (22.0-30.0) sec Chloride 110 H (98-107) mmol/L Carbon Dioxide 21 L (22-30) mmol/L BUN 27 H (7-17) mg/dL Glucose 108 H (74-99) mg/dL AST 623 H (14-36) U/L ALT 142 H (9-52) U/L Creatine Kinase >51676 H (30-135) U/L Total Creatine Kinase (30-135) U/L CK-MB (CK-2) (0.0-2.4) ng/mL Troponin I (0.000-0.034) ng/mL C-Reactive Protein (<10.0) mg/L Total Protein 5.7 L (6.3-8.2) g/dL Albumin 3.0 L (3.5-5.0) g/dL Microbiology - Last 24 Hours (Table) 03/26/17 13:20 Urine Culture - Preliminary Urine,Voided Assessment and Plan Plan: Based on patient's history and physical examination, a diagnosis of inflammatory myositis seems unlikely at this time and patient symptoms seem to be originating from rhabdomyolysis. I did discuss patient's case with Dr. Dahl and she recommends that patient continue receiving IV fluids and that if within 2-3 days of rehydration the patient still is symptomatic, then we would recommend EMG of bilateral upper and lower extremities and then if this shows abnormalities consistent with possible myositis, a muscle biopsy should be done. Pt.'s symptoms may also be related to degenerative spinal disease with possible radiculopathy. Patient's CPK value seems to be too high for a diagnosis myositis which would reveal a CPK closer to 10,000. We recommend psychiatric evaluation for possible neuroleptic malignant syndrome. Additional autoimmune labs were ordered and we will see the patient this coming Friday in the office for f/u if she has been discharged by then. I have also ordered routine CPKs and an aldolase and urine myoglobin as well. 1. Myalgias/muscle weakness: continue IVF and if patient still symptomatic after 2-3 days of rehydration, then EMG B/L upper and B/L lower extremities should be considered and if EMG reveals findings are consistent with possible myositis, then muscle bx should be done. Patient's case was discussed with Dr. Dahl who does agree with the above assessment and plan. Time with Patient: Less than 30
[2017-03-28 15:16] LABS: C-ANCA <1:20 Titer (<1:20); P-ANCA <1:20 Titer (<1:20)
--- NOTE | 2017-03-28 16:02 | P.PN ---
Subjective Principal diagnosis: Severe weakness and muscle pain This is a 66-year-old with history of schizophrenia, nicotine dependence, who was brought to the hospital by a friend because the patient was unable to get out of the bathtub. She was extremely weak. According to the patient she has had some frequent falls recently and has had extensive discomfort in the muscles in her legs and arms, she also has been having significant chest pain off and on. She also states that she has more shortness of breath than usual. Blood pressure on arrival to the emergency room 117/70 with a heart rate in the 90s. Afebrile. The pressure this morning 136/78 with a heart rate in the 80s, 93% on room air. White blood cell count on arrival 20.2, 17.4 this morning, hemoglobin 15.2, potassium 3.9, BUN 27, creatinine 0.9. CK greater than 32,000, MB 147, troponin 8.2, 7.1, 5.5. TSH 4.3, free T4 0.87. Cholesterol 172, triglycerides 145, LDL 98, HDL 45. Pelvis and shoulder x-ray do not reveal any acute fracture. Brain CT reveals age-related atrophic and chronic small vessel ischemic change without acute intracranial process. Chest x-ray does not reveal any acute process. Initial EKG shows a normal sinus rhythm with mild ST depression in the lateral leads subsequent EKG shows normal sinus rhythm with mild lateral ST depression. rheumatology consultation was requested. 03/28/2017 cardiac gram with Doppler study was performed which revealed an ejection fraction of 50-55%. CK improving somewhat today. At pressure 122/60. Objective - Vital Signs Vital signs: Vital Signs Temp 97.6 F 03/28/17 15:51 Pulse 80 03/28/17 15:51 Resp 18 03/28/17 15:51 BP 122/69 03/28/17 15:51 Pulse Ox 95 03/28/17 15:51 Intake & Output 03/27/17 03/28/17 03/28/17 18:59 06:59 18:59 Intake Total 2609.9 267.1 365 Balance 2609.9 267.1 365 Weight 77.8 kg 81.4 kg Intake: IV 37 Heparin Sodium,Porcine/ 37 D5w Pmx 25,000 unit In Dextrose/Water 1 500ml. bag @ 12 UNITS/KG/HR 18.5 mls/hr IV .Q24H [facility] Rx#: [id number] Intake, IV Titration 1409.9 30.1 Amount Heparin Sodium,Porcine/ 609.9 30.1 D5w Pmx 25,000 unit In Dextrose/Water 1 500ml. bag @ 12 UNITS/KG/HR 18.5 mls/hr IV .Q24H [facility] Rx#: [id number] Sodium Chloride 0.9% 1, 800 000 ml @ 100 mls/hr IV . Q10H [facility] Rx#:[id number] Oral 1200 200 365 Other: Voiding Method Bedside Commode Bedside Commode # Voids 1 2 # Bowel Movements 1 - Exam PHYSICAL EXAMINATION: HEENT: Head is atraumatic, normocephalic. Pupils equal, round. Neck is supple. There is no elevated jugular venous pressure. HEART EXAMINATION: Heart S1, S2 normal. No murmur or gallop heard. CHEST EXAMINATION: Lungs are clear to auscultation and precussion. No chest wall tenderness is noted on palpation or with deep breathing. ABDOMEN: Soft, nontender. Bowel sounds are heard. No organomegaly noted. EXTREMITIES: 2+ peripheral pulses with no evidence of peripheral edema and no calf tenderness noted]. Positive pain on palpation of the muscles in arms and legs. NEUROLOGIC [patient is awake, alert and oriented -3.] . - Labs CBC & Chem 7: 03/28/17 05:47 03/28/17 05:47 Labs: Abnormal Lab Results - Last 24 Hours (Table) 03/27/17 03/27/17 03/27/17 Range/Units 16:10 17:19 17:19 APTT 41.0 H (22.0-30.0) sec Chloride (98-107) mmol/L BUN (7-17) mg/dL Calcium (8.4-10.2) mg/dL AST 532 H (14-36) U/L ALT 146 H (9-52) U/L Creatine Kinase (30-135) U/L C-Reactive Protein 148.0 H (<10.0) mg/L Total Protein (6.3-8.2) g/dL Albumin (3.5-5.0) g/dL Aldolase 89.8 H (1.2-7.6) U/L Vitamin D 25-Hydroxy (30.0-100.0) ng/mL 03/27/17 03/27/17 03/28/17 Range/Units 17:19 22:53 05:47 APTT 54.9 H (22.0-30.0) sec Chloride 112 H (98-107) mmol/L BUN 21 H (7-17) mg/dL Calcium 7.9 L (8.4-10.2) mg/dL AST 446 H (14-36) U/L ALT 131 H (9-52) U/L Creatine Kinase 24333 H (30-135) U/L C-Reactive Protein (<10.0) mg/L Total Protein 5.1 L (6.3-8.2) g/dL Albumin 2.4 L (3.5-5.0) g/dL Aldolase (1.2-7.6) U/L Vitamin D 25-Hydroxy 8.1 L (30.0-100.0) ng/mL 03/28/17 Range/Units 05:57 APTT 59.6 H (22.0-30.0) sec Chloride (98-107) mmol/L BUN (7-17) mg/dL Calcium (8.4-10.2) mg/dL AST (14-36) U/L ALT (9-52) U/L Creatine Kinase (30-135) U/L C-Reactive Protein (<10.0) mg/L Total Protein (6.3-8.2) g/dL Albumin (3.5-5.0) g/dL Aldolase (1.2-7.6) U/L Vitamin D 25-Hydroxy (30.0-100.0) ng/mL Microbiology - Last 24 Hours (Table) 03/26/17 13:20 Urine Culture - Final Urine,Voided Assessment and Plan Plan: Assessment and plan #1 symptoms of generalized weakness, muscle aching and falls, primary muscle disorder needs to be considered. Possible myositis. #2 abnormal liver enzymes, could be secondary to primary muscle disorder. #3 increase white blood cell count, no evidence of fever #4 troponin elevation, could be secondary to primary muscle disorder, possible myocarditis. Not suggestive of acute coronary syndrome. #5 schizophrenia #6 nicotine dependence Plan Cardiology's perspective, we'll follow this patient with you now on an as- needed basis only, once patient has recovered from this present illness we will recommend having a stress test as an outpatient. DNP note has been reviewed, I agree with a documented findings and plan of care. Patient was seen and examined.
[2017-03-28] MEDS: LEVOFLOXACIN 500 MG TAB PO SCH (21:50)
[2017-03-29] MEDS: NITROGLYCERIN OINT 1 INCH/GM PACKET TOPICAL SCH ×4 (00:09→16:53)
[2017-03-29] MEDS: SODIUM CHLORIDE 0.9% 1,000 ML IV SCH ×3 (00:10→16:36)
[2017-03-29 08:05] LABS: ALT 159 U/L (9-52); AST 456 U/L (14-36); Alkaline Phosphatase 62 U/L (38-126); Anion Gap 5 mmol/L; Blood Urea Nitrogen 12 mg/dL (7-17); Carbon Dioxide 23 mmol/L (22-30); Chloride 112 mmol/L (98-107); Glucose 92 mg/dL (74-99); Non-African American GFR(MDRD) >60 (>60 ml/min/1.73 sqM); Sodium 140 mmol/L (137-145); Total Bilirubin 0.6 mg/dL (0.2-1.3); Total Protein 5.3 g/dL (6.3-8.2)
[2017-03-29 08:08] LABS: Basophils % (A) 0 %; CHCM 32.9; Eosinophils # (A) 0.1 k/uL (0-0.7); Eosinophils % (A) 1 %; HCT 38.4 % (34.0-46.0); HDW 2.44; HGB 13.1 gm/dL (11.4-16.0); Luc # (Auto) 0.15; Luc % (Auto) 2; Lymphocytes # (A) 1.5 k/uL (1.0-4.8); Lymphocytes % (A) 23 %; MCH 33.5 pg (25.0-35.0); MCHC 34.2 g/dL (31.0-37.0); MCV 97.7 fL (80.0-100.0); Mean Platelet Volume 7.5; Monocytes # (A) 0.4 k/uL (0-1.0); Monocytes % (A) 5 %; Neutrophils # (A) 4.5 k/uL (1.3-7.7); Neutrophils % (A) 68 %; RBC 3.93 m/uL (3.80-5.40); RDW 13.1 % (11.5-15.5); WBC 6.6 k/uL (3.8-10.6); WBC (Perox) 7.04
[2017-03-29] MEDS: ASPIRIN 325 MG TAB PO SCH (08:26)
[2017-03-29] MEDS: BENZTROPINE MESYLATE 0.5 MG TAB PO SCH (08:26)
[2017-03-29] MEDS: NICOTINE 14MG/24HR PATCH TRANSDERM SCH (08:27)
[2017-03-29] MEDS: HALOPERIDOL 5 MG TAB PO SCH ×3 (08:27→21:50)
[2017-03-29 09:27] LABS: Creatine Kinase 22163 U/L (30-135)
[2017-03-29] MEDS: LEVOFLOXACIN 500 MG TAB PO SCH (21:49)
[2017-03-30] MEDS: SODIUM CHLORIDE 0.9% 1,000 ML IV SCH ×6 (00:40→12:51)
[2017-03-30] MEDS: NITROGLYCERIN OINT 1 INCH/GM PACKET TOPICAL SCH ×5 (01:53→22:48)
[2017-03-30 08:14] LABS: Basophils % (A) 1 %; CH 32.1; CHCM 33.2; Eosinophils # (A) 0.2 k/uL (0-0.7); Eosinophils % (A) 2 %; HCT 41.8 % (34.0-46.0); HDW 2.47; HGB 14.3 gm/dL (11.4-16.0); Luc # (Auto) 0.13; Luc % (Auto) 2; Lymphocytes # (A) 1.7 k/uL (1.0-4.8); Lymphocytes % (A) 22 %; MCH 33.2 pg (25.0-35.0); MCHC 34.2 g/dL (31.0-37.0); MCV 97.2 fL (80.0-100.0); Mean Platelet Volume 7.1; Monocytes # (A) 0.4 k/uL (0-1.0); Monocytes % (A) 5 %; Neutrophils # (A) 5.4 k/uL (1.3-7.7); Neutrophils % (A) 69 %; RDW 13.2 % (11.5-15.5); WBC 7.8 k/uL (3.8-10.6); WBC (Perox) 8.09
--- NOTE | 2017-03-30 08:16 | PN ---
DATE OF SERVICE: 03/28/2017 This 66-year-old woman who was admitted with acute rhabdomyolysis is being closely monitored. The patient has generalized weakness and tiredness. No fever. No cough. On exam, alert and oriented x3. Pulse 90, blood pressure 162/84, respiration 17 , temperature 97.7, pulse ox 94% on room air. HEENT: Conjunctivae normal. NECK: No jugular venous distention. CARDIOVASCULAR: S1, S2 muffled. RESPIRATORY: Breath sounds diminished at the bases. ABDOMEN: Soft, non-tender. LEGS: No edema. No swelling. NERVOUS SYSTEM: Diffusely weak. LABS: AST, ALT noted. CK is 25,449. ASSESSMENT: 1. Acute rhabdomyolysis with generalized weakness with a muscle injury. 2. Increased AST, ALT, possibly acute hepatitis. 3. Increased white count, possibly reactive. 4. Troponin elevated to 8.280, possibly from rhabdomyolysis. 5. Generalized weakness and gait dysfunction. 6. Degenerative joint disease. 7. History of nicotine dependence. RECOMMENDATIONS AND DISCUSSION: I recommend to continue current medications, continue symptomatic treatment, IV fluids. Monitor CK. PT/OT evaluation. Further recommendations to follow. MTDD
[2017-03-30 08:30] LABS: ALT 164 U/L (9-52); AST 350 U/L (14-36); Alkaline Phosphatase 66 U/L (38-126); Anion Gap 4 mmol/L; Blood Urea Nitrogen 11 mg/dL (7-17); Calcium 8.2 mg/dL (8.4-10.2); Carbon Dioxide 25 mmol/L (22-30); Chloride 110 mmol/L (98-107); Glucose 96 mg/dL (74-99); Non-African American GFR(MDRD) >60 (>60 ml/min/1.73 sqM); Potassium 4.2 mmol/L (3.5-5.1); Sodium 139 mmol/L (137-145); Total Bilirubin 0.7 mg/dL (0.2-1.3); Total Protein 5.3 g/dL (6.3-8.2)
[2017-03-30 09:09] LABS: Creatine Kinase 12900 U/L (30-135)
[2017-03-30] MEDS: BENZTROPINE MESYLATE 0.5 MG TAB PO SCH (09:11)
[2017-03-30] MEDS: ASPIRIN 325 MG TAB PO SCH (09:11)
[2017-03-30] MEDS: HALOPERIDOL 5 MG TAB PO SCH ×3 (09:11→21:04)
[2017-03-30] MEDS: NICOTINE 14MG/24HR PATCH TRANSDERM SCH (09:11)
--- NOTE | 2017-03-30 09:20 | US ---
EXAMINATION TYPE: US gallbladder DATE OF EXAM: 03/30/2017 COMPARISON: NONE CLINICAL HISTORY: 66-year-old female high LFT. TECHNIQUE: Multiple sonographic images of the right upper quadrant are obtained. FINDINGS: Liver Length: 13.2 cm Gallbladder Wall: 0.3 cm CBD: 0.3 cm Right Kidney: 10.2 x 4.4 x 5.0 cm Pancreas: Suboptimal visualization of the pancreatic tail secondary to shadowing from bowel gas. Vis ualized portions appear grossly unremarkable. Liver: Homogeneous but slightly hypoechoic. There is a 1.5 cm echogenic lesion at the peripheral rig ht hepatic lobe which is indeterminate, possible hemangioma. Gallbladder: JOSE complex. Evidence for sonographic Gregg's sign: No CBD: wnl Right Kidney: No hydronephrosis. IMPRESSION: 1. Slightly hypoechoic appearance to the liver could be on a technical basis. Findings can also be se en with hepatitis. Clinically correlate. 2. A 1.5 cm echogenic lesion peripheral right liver lobe may represent a hemangioma. Other etiologies not excluded at this time. Three-month follow-up recommended. 3. Gallbladder packed with stones. Sonographic Gregg's sign reported absent. 4. No biliary ductal dilatation.
[2017-03-30] MEDS ORDERED: FUROSEMIDE 10 MG/ML 2 ML VIAL IV ONE (12:36)
[2017-03-30] MEDS: LEVOFLOXACIN 500 MG TAB PO SCH (21:04)
[2017-03-31] MEDS: NITROGLYCERIN OINT 1 INCH/GM PACKET TOPICAL SCH ×4 (05:45→17:20)
[2017-03-31] MEDS: SODIUM CHLORIDE 0.9% 1,000 ML IV SCH ×2 (05:45→16:17)
[2017-03-31] MEDS: HALOPERIDOL 5 MG TAB PO SCH ×3 (08:27→21:39)
[2017-03-31] MEDS: NICOTINE 14MG/24HR PATCH TRANSDERM SCH (08:28)
[2017-03-31] MEDS: BENZTROPINE MESYLATE 0.5 MG TAB PO SCH (08:28)
[2017-03-31] MEDS: ASPIRIN 325 MG TAB PO SCH (08:28)
[2017-03-31 09:16] LABS: Basophils # (A) 0.1 k/uL (0-0.2); Basophils % (A) 1 %; CHCM 32.3; Eosinophils # (A) 0.2 k/uL (0-0.7); Eosinophils % (A) 2 %; HCT 42.7 % (34.0-46.0); HDW 2.42; HGB 14.2 gm/dL (11.4-16.0); Luc # (Auto) 0.12; Luc % (Auto) 1; Lymphocytes # (A) 1.8 k/uL (1.0-4.8); Lymphocytes % (A) 19 %; MCH 33.2 pg (25.0-35.0); MCHC 33.3 g/dL (31.0-37.0); MCV 99.6 fL (80.0-100.0); Mean Platelet Volume 7.5; Monocytes # (A) 0.6 k/uL (0-1.0); Monocytes % (A) 6 %; Neutrophils # (A) 6.7 k/uL (1.3-7.7); Neutrophils % (A) 71 %; RBC 4.29 m/uL (3.80-5.40); RDW 13.3 % (11.5-15.5); WBC 9.5 k/uL (3.8-10.6); WBC (Perox) 9.29
[2017-03-31 09:42] LABS: ALT 137 U/L (9-52); AST 200 U/L (14-36); Alkaline Phosphatase 61 U/L (38-126); Anion Gap 7 mmol/L; Blood Urea Nitrogen 11 mg/dL (7-17); Carbon Dioxide 27 mmol/L (22-30); Chloride 105 mmol/L (98-107); Glucose 138 mg/dL (74-99); Non-African American GFR(MDRD) >60 (>60 ml/min/1.73 sqM); Sodium 139 mmol/L (137-145); Total Bilirubin 0.5 mg/dL (0.2-1.3); Total Protein 4.7 g/dL (6.3-8.2)
[2017-03-31 10:24] LABS: Creatine Kinase 5319 U/L (30-135)
--- NOTE | 2017-03-31 11:56 | PN ---
DATE OF SERVICE: 03/29/2017 This 66 year old woman was admitted with generalized weakness and acute rhabdomyolysis, is being closely monitored. CK is still elevated. No chest pain. No palpitations. No fever. On exam, alert and oriented times three. Pulse 82. Blood pressure 187/77. Respirations 20. Temperature 98 degrees. Pulse ox 94% on room air. HEENT: Conjunctivae normal. Neck no JVD. CARDIOVASCULAR: S1, S2 muffled. RESPIRATORY: Breath sounds diminished at the bases. Scattered rhonchi and no crackles. ABDOMEN: Soft, nontender. No mass palpable. LEGS: No edema. No swelling. NERVOUS SYSTEM: No focal deficits. LABS: LFTs still elevated. AST 456, ALTntd. CK noted. ASSESSMENT: 1. Generalized weakness and acute rhabdomyolysis, increased AST, ALT, possible acute hepatitis. 2. Increased WBC possibly reactive. Troponin elevated up to 8.2, 8.0, possible rhabdomyolysis. 3. Generalized weakness and gait dysfunction. 4. Degenerative joint disease. 5. History of nicotine dependence. RECOMMENDATIONS AND DISCUSSION: Continue the current medications, continue symptomatic treatment. Repeat labs. I would also recommend ultrasound of the abdomen and liver and gallbladder also. Further recommendations to follow. MTDD
--- NOTE | 2017-03-31 13:15 | P.DS ---
Providers Date of admission: 03/26/17 15:49 Attending physician: Veto Stuart MD Consults: 03/26/17 15:49 Consult Physician Urgent Consulting Provider: Kobi Joseph Consult Reason/Comments: nstemi Do you want consulting provider notified?: Already Contacted 03/27/17 00:04 Consult Physician Urgent Consulting Provider: Elysia Vidal Consult Reason/Comments: SCHIZOPHRENIA Do you want consulting provider notified?: Yes, Notify in am 03/27/17 10:02 Consult Physician Urgent Consulting Provider: Shawnee Dahl Consult Reason/Comments: elevated ck,cm Do you want consulting provider notified?: Yes Primary care physician: Stated None Hospital Course: This 75-year-old woman who was admitted with acute rhabdomyolysis also had a high CK. The patient was treated with the IV fluids and continued monitoring. The troponin was elevated up to 8.2. Which was thought to be noncardiac and secondary to rhabdomyolysis. Cardiology saw the patient. Patient for discharge. The patient was monitored closely as mentioned earlier. The CK levels came down to 5000s. On exam weight is a stable cardiocentesis system S1-S2 normal respirator system breath sounds are normal. Abdomen soft and nontender. Nervous system diffusely weak. This patient be discharged in a stable condition with guarded prognosis to F. Recommended close follow-up with psychiatric endorses primary care physician outpatient setting. Final diagnosis. 1. Acute rhabdomyolysis with a generalized weakness with muscle injury. 2. Increased AST and the possible acute hepatitis improved. 3. Increased WBC possibly reactive. 4. Troponin elevated up to 8.280 possibly from rhabdomyolysis. 5. Generalized weakness and gait dysfunction. 6. DJD. 7. History and nicotine dependence. Patient Condition at Discharge: Serious Plan - Discharge Summary New Discharge Prescriptions: New Levofloxacin [Levaquin] 500 mg PO HS #0 tab Multivitamins, Thera [Multivitamin] 1 tab PO DAILY #30 tablet Nicotine 14Mg/24Hr Patch [Habitrol] 1 patch TRANSDERM DAILY patch Continue Benztropine Mesylate [Cogentin] 0.5 mg PO DAILY #10 Haloperidol [Haldol] 10 mg PO TID #30 Discharge Medication List Benztropine Mesylate [Cogentin] 0.5 mg PO DAILY #10 03/31/17 [Rx] Haloperidol [Haldol] 10 mg PO TID #30 03/31/17 [Rx] Levofloxacin [Levaquin] 500 mg PO HS #0 tab 03/31/17 [Rx] Multivitamins, Thera [Multivitamin] 1 tab PO DAILY #30 tablet 03/31/17 [Rx] Nicotine 14Mg/24Hr Patch [Habitrol] 1 patch TRANSDERM DAILY patch 03/31/17 [Rx] Follow up Appointment(s)/Referral(s): pcp, [Other] - 1 Week Discharge Disposition: TRANSFER TO SNF/F
[2017-03-31] MEDS: LEVOFLOXACIN 500 MG TAB PO SCH (20:02)
--- NOTE | 2017-03-31 23:22 | PN ---
DATE OF SERVICE: 03/30/2017 This 66-year-old woman who was admitted with acute rhabdomyolysis is improving significantly. Patient is complaining of some generalized edema. No chest pain. No palpitations. No fever. On exam, alert and oriented x3. Pulse 80, blood pressure 129/71, respiration 16 , temperature 97.4, pulse ox 94% on room air. HEENT: Conjunctivae normal. NECK: No jugular venous distention. CARDIOVASCULAR: S1, S2 muffled. RESPIRATORY: Breath sounds diminished at the bases. A few scattered rhonchi and crackles. ABDOMEN: Soft, non-tender. LEGS: No edema. No swelling. NERVOUS SYSTEM: No focal deficit. LABS: AST 350. AST 164. Creatine kinase 12,900. ASSESSMENT: 1. Acute rhabdomyolysis with generalized weakness and muscle injury. 2. Increased AST, ALT, possibly acute hepatitis. 3. Increased white count, possibly reactive. 4. Troponin elevated to 8.80, possibly from acute rhabdomyolysis. 5. Generalized weakness and gait dysfunction. 6. Degenerative joint disease. 7. History of nicotine dependence. RECOMMENDATIONS AND DISCUSSION: I recommend to continue current medications, continue with the monitoring, symptomatic treatment. We will monitor the patient closely. Reduce IV fluids and also the Lasix. See orders for further details. Guarded prognosis. Further recommendations to follow. MTDD
[2017-04-01] MEDS: NITROGLYCERIN OINT 1 INCH/GM PACKET TOPICAL SCH ×3 (00:01→11:00)
[2017-04-01] MEDS: SODIUM CHLORIDE 0.9% 1,000 ML IV SCH (05:48)
[2017-04-01 07:27] VITALS: BP 149/72; PULSE 82; RESP 16; TEMP 96.9
[2017-04-01 08:31] LABS: Basophils % (A) 0 %; CH 32.7; CHCM 33.4; Eosinophils # (A) 0.2 k/uL (0-0.7); Eosinophils % (A) 2 %; HCT 40.7 % (34.0-46.0); HDW 2.37; HGB 13.6 gm/dL (11.4-16.0); Luc # (Auto) 0.09; Luc % (Auto) 1; Lymphocytes # (A) 1.9 k/uL (1.0-4.8); Lymphocytes % (A) 20 %; MCH 32.9 pg (25.0-35.0); MCHC 33.5 g/dL (31.0-37.0); MCV 98.2 fL (80.0-100.0); Mean Platelet Volume 7.1; Monocytes # (A) 0.4 k/uL (0-1.0); Monocytes % (A) 5 %; Neutrophils # (A) 6.7 k/uL (1.3-7.7); Neutrophils % (A) 72 %; RBC 4.15 m/uL (3.80-5.40); RDW 13.6 % (11.5-15.5); WBC 9.4 k/uL (3.8-10.6); WBC (Perox) 9.22
[2017-04-01] MEDS: HALOPERIDOL 5 MG TAB PO SCH (08:56)
[2017-04-01] MEDS: BENZTROPINE MESYLATE 0.5 MG TAB PO SCH (08:56)
[2017-04-01] MEDS: NICOTINE 14MG/24HR PATCH TRANSDERM SCH (08:56)
[2017-04-01] MEDS: ASPIRIN 325 MG TAB PO SCH (08:56)
--- NOTE | 2017-04-01 12:36 | XR ---
EXAMINATION TYPE: XR cervical spine limited DATE OF EXAM: 04/01/2017 TECHNIQUE: Frontal, lateral, swimmers, and open mouth view of the cervical spine are obtained. HISTORY: neck and back pain COMPARISON: None FINDINGS: Osseous structures are somewhat demineralized. The cervical spine is visualized in its ent irety from C1 thru the top of T1 level, it is satisfactory in alignment without evidence of acute fra cture or dislocation. The pre-vertebral soft tissue appears within normal limits. The C1-C2 articul ation is within normal limits on the open mouth view. Vertebral body heights are maintained. There is mild disc space narrowing C5-C6 level. There is moderate disc space narrowing C6-C7 and C7-T1 levels . No significant spurring is seen. Overlying soft tissue is unremarkable. IMPRESSION: Demineralization and degenerative changes in cervical spine as detailed above.
--- NOTE | 2017-04-04 13:03 | DS ---
DATE OF SERVICE: 04/01/2017 DISCHARGE ADDENDUM This 66-year-old woman who was admitted with acute rhabdomyolysis is being closely monitored. The patient will be transferred to [facility] in a stable condition with guarded prognosis. Please refer to my previous dictation for discharge diagnoses and medical advice. Total time taken 35 minutes. On exam, currently vitals are stable. CARDIOVASCULAR: S1 and S2, muffled. ABDOMEN: Soft. NERVOUS SYSTEM: No focal deficit. MTDD
== END 2017-04-01 12:57 | DRG 558 ==
LOC: EEVIPCON 13:12 → EC 13:12 → 6SEL 15:49 → 4MS4W 03-28 14:53 → 6ICU 03-29 10:50 → 4MS4W 03-29 10:56
PROVIDERS: ADMIT Internal Medicine; ATTEND Internal Medicine
DX: M62.82 Rhabdomyolysis (principal); F20.9 Schizophrenia, unspecified; B17.9 Acute viral hepatitis, unspecified; M19.91 Primary osteoarthritis, unspecified site; F17.210 Nicotine dependence, cigarettes, uncomplicated; R26.9 Unspecified abnormalities of gait and mobility; R29.6 Repeated falls; Z91.81 History of falling; Z98.42 Cataract extraction status, left eye; Z98.41 Cataract extraction status, right eye; Z79.899 Other long term (current) drug therapy
CPT/HCPCS: 36415; 70450; 71020; 72040; 72170; 76705; 80053; 80061; 81001; 82085; 82164; 82306; 82550; 82553; 83735; 83874; 84439; 84443; 84450; 84460; 84481; 84484; 84550; 85025; 85610; 85652; 85730; 86038; 86140; 86160; 86162; 86255; 86431; 86812; 87086; 93306; 94760